=== PATIENT | female | born 1980 | race Caucasian/White ===

== ENCOUNTER 2021-12-07 08:16 | Inpatient (IN) | payer OTHER ==
[2021-12-07 08:50] VITALS: BMI 19.7
[2021-12-07] MEDS ORDERED: BISMUTH SUBSALICYLATE 262 MG/15 ML BTL PO PRN (09:21)
[2021-12-07] MEDS ORDERED: NICOTINE 10 MG CARTRIDGE (INHALER) IH PRN ×2 (09:21→09:49)
[2021-12-07] MEDS ORDERED: MAGNESIUM HYDROX 2400MG/30ML ORAL SUSPENSION 30 ML CUP PO PRN ×2 (09:21→09:49)
[2021-12-07] MEDS ORDERED: IBUPROFEN 400 MG TABLET (FP) PO PRN ×2 (09:21→09:49)
[2021-12-07] MEDS ORDERED: methaDONE HCL 10 MG TABLET (FOR DETOX USE ONLY) PO ONE ×2 (09:21→09:49)
[2021-12-07] MEDS ORDERED: ACETAMINOPHEN 325 MG TABLET (FP) PO PRN ×4 (09:21→09:49)
[2021-12-07] MEDS ORDERED: MAGNESIUM CITRATE 300 ML BOTTLE PO PRN ×2 (09:21→09:49)
[2021-12-07] MEDS ORDERED: ONDANSETRON *ODT* 4 MG TABLET SL PRN ×2 (09:21→09:49)
[2021-12-07] MEDS ORDERED: cloNIDine HCL 0.1 MG TABLET PO PRN (09:21)
[2021-12-07] MEDS ORDERED: LOPERAMIDE HCL 2 MG CAPSULE PO PRN ×2 (09:21→09:49)
[2021-12-07] MEDS ORDERED: METHOCARBAMOL 500 MG TABLET PO PRN (09:21)
[2021-12-07] MEDS ORDERED: MENTHOL/PHENOL 1 EACH UD MM PRN ×2 (09:21→09:49)
[2021-12-07] MEDS ORDERED: MAG HYDROX/AL HYDROX/SIMETH 30 ML UNIT-DOSE CUP PO PRN ×2 (09:21→09:49)
[2021-12-07] MEDS ORDERED: BISMUTH SUBSALICYLATE 524 MG/30 ML PO PRN (09:49)
[2021-12-07] MEDS ORDERED: NICOTINE 14 MG/24 HOURS TOPICAL PATCH TD SCH (10:00)
[2021-12-07] MEDS ORDERED: PRENATAL VITAMINS W/ FOLIC ACID TABLET (FP) PO SCH (10:00)
[2021-12-07] MEDS: METHOCARBAMOL 500 MG TABLET PO PRN ×2 (10:41→18:36)
[2021-12-07] MEDS: hydrOXYzine PAMOATE 25 MG CAPSULE (FP) PO SCH ×8 (10:41→21:55)
[2021-12-07] MEDS: NICOTINE 14 MG/24 HOURS TOPICAL PATCH TD SCH (10:42)
[2021-12-07 14:34] LABS: HEMATOCRIT 38.8 % (32.4-45.2); HEMOGLOBIN 12.6 GM/dL (10.7-15.3); MCH 28.3 pg (25.7-33.7); MCHC 32.5 g/dl (32.0-36.0); PLATELET COUNT 191 10^3/uL (134-434); RBC 4.46 M/mm3 (3.60-5.2); RDW 14.7 % (11.6-15.6); WHITE BLOOD COUNT 5.2 K/mm3 (4.0-10.0)
[2021-12-07 14:43] LABS: ALBUMIN 4.1 g/dl (3.4-5.0); BLOOD UREA NITROGEN 7.7 mg/dL (7-18); CALCIUM 9.4 mg/dL (8.5-10.1)
[2021-12-07 14:46] LABS: CREATININE 0.8 mg/dL (0.55-1.3)
[2021-12-07 14:48] LABS: BILIRUBIN,TOTAL 0.5 mg/dL (0.2-1); TOT PROT 7.4 g/dl (6.4-8.2)
[2021-12-07] MEDS: PRENATAL VITAMINS W/ FOLIC ACID TABLET (FP) PO SCH (14:48)
[2021-12-07] MEDS ORDERED: MELATONIN 5 MG TABLETS PO SCH ×2 (22:00)
[2021-12-07] MEDS ORDERED: QUEtiapine FUMARATE 50 MG TABLET PO SCH (22:00)
[2021-12-07] MEDS ORDERED: THIAMINE HCL 100 MG TABLET (FP) PO SCH ×2 (22:00)
[2021-12-08] MEDS: cloNIDine HCL 0.1 MG TABLET PO PRN ×2 (04:35→08:42)
[2021-12-08] MEDS: hydrOXYzine PAMOATE 25 MG CAPSULE (FP) PO SCH ×3 (06:28→09:16)
[2021-12-08 07:54] VITALS: BP 117/75; PULSE 92; TEMP 97.5
[2021-12-08] MEDS: METHOCARBAMOL 500 MG TABLET PO PRN (08:42)
[2021-12-08] MEDS ORDERED: methaDONE HCL 10 MG TABLET (FOR DETOX USE ONLY) ONE (09:12)
[2021-12-08] MEDS: PRENATAL VITAMINS W/ FOLIC ACID TABLET (FP) PO SCH (09:16)
[2021-12-08] MEDS: NICOTINE 14 MG/24 HOURS TOPICAL PATCH TD SCH (09:16)
[2021-12-09] MEDS ORDERED: methaDONE HCL 10 MG TABLET (FOR DETOX USE ONLY) PO ONE ×2 (10:00)
[2021-12-11] MEDS ORDERED: methaDONE HCL 10 MG TABLET (FOR DETOX USE ONLY) PO ONE ×2 (10:00)
== END 2021-12-08 11:00 | disposition left against medical advice (07) | DRG 894 ==
LOC: YASAS 08:16 → Y6N 09:35
PROVIDERS: ADMIT Allergy & Immunology; ATTEND Allergy & Immunology
PROC: HZ2ZZZZ Detoxification Services for Substance Abuse Treatment (ICD-10-PCS; principal; 2021-12-07)
DX: F11.23 Opioid dependence with withdrawal (principal); F14.20 Cocaine dependence, uncomplicated; F12.20 Cannabis dependence, uncomplicated; F17.210 Nicotine dependence, cigarettes, uncomplicated; F31.9 Bipolar disorder, unspecified; F41.9 Anxiety disorder, unspecified; F32.A Depression, unspecified; J45.909 Unspecified asthma, uncomplicated; Z62.810 Personal history of physical and sexual abuse in childhood; Z91.51 Personal history of suicidal behavior; Z85.3 Personal history of malignant neoplasm of breast; Z90.12 Acquired absence of left breast and nipple; Z85.05 Personal history of malignant neoplasm of liver; Z85.118 Personal history of other malignant neoplasm of bronchus and lung; Z88.8 Allergy status to other drugs, medicaments and biological substances; Z91.013 Allergy to seafood
CPT/HCPCS: 36415; 80053; 81025; 85027; 86780; 93005; 93010; J0735; Q0162